=== PATIENT | male | born 1965 | race Caucasian/White ===

== ENCOUNTER 2022-10-05 18:17 | Emergency (ER) | payer MEDICAID, OTHER ==
[~2022-10-05] VITALS: Ht 170.2 cm; Wt 62.1 kg
[2022-10-05 19:10] VITALS: BP 127/62
--- NOTE | 2022-10-05 19:24 | NUR ---
INTERVIEWED PATIENT AT BEDSIDE, HAS COMPLAINTS OF BILATERAL FEET SWELLING x2 DAYS. PATIENT STATE THAT HE RECENTLY HAD PROCEDURE FOR DIABETIC ABSCESS. PMH: DM, ANXIETY,OK
[2022-10-05 20:13] LABS: BASOPHILS # (AUTO) 0.1 K/uL (0.00-0.22); BASOPHILS % (AUTO) 0.7 % (0.0-2.0); EOSINOPHILS # (AUTO) 0.3 K/uL (0-0.4); EOSINOPHILS % (AUTO) 2.4 % (0.0-4.0); HEMATOCRIT 31.1 % (36-52); HEMOGLOBIN 9.7 g/dL (12.0-18.0); LYMPHOCYTES # (AUTO) 2.1 K/uL (2.0-11.5); LYMPHOCYTES % (AUTO) 17.1 % (20.5-51.1); MEAN CORPUSCULAR HEMOGLOBIN 23 pg (27-31); MEAN CORPUSCULAR HGB CONC 31 g/dL (33-37); MEAN CORPUSCULAR VOLUME 74.9 fL (80-94); MONOCYTES # (AUTO) 0.8 K/uL (0.8-1.0); MONOCYTES % (AUTO) 6.1 % (1.7-9.3); NEUTROPHILS # (AUTO) 9.1 K/uL (1.8-7.7); NEUTROPHILS % (AUTO) 73.7 % (42.2-75.2); PLATELET COUNT (AUTO) 344 K/uL (140-450); RED BLOOD CELL COUNT(AUTO) 4.15 MIL/uL (4.20-6.10); RED CELL DISTRIBUTION WIDTH 16.2 % (11.6-13.7); WHITE BLOOD COUNT (AUTO) 12.4 K/uL (4.8-10.8)
[2022-10-05 20:37] LABS: POTASSIUM 4.8 mmol/L (3.5-5.1)
[2022-10-05 20:38] LABS: CARBON DIOXIDE 24.8 mmol/L (21-32); CREATININE 3.1 mg/dL (0.6-1.3); TOTAL BILIRUBIN 0.5 mg/dL (0.0-1.0)
[2022-10-05 20:39] LABS: ALBUMIN 2.3 g/dL (3.4-5.0)
[2022-10-05] MEDS ORDERED: CEPH-588 PO (21:39)
[2022-10-05] MEDS ORDERED: ACET-10509 PO (21:39)
[2022-10-05 21:50] VITALS: BP 127/62
--- NOTE | 2022-10-05 21:50 | NUR ---
Patient does not wish to proceed with medical care recommended by DR. CLAYTON. Patient given information related to possible complications, up to and including , which could occur as a result of leaving hospital at this time. Patient verbalizes understanding of risks involved leaving against medical advice. Patient has signed AMA form. PRESCRIPTIONS PROVIDED: ACETAMINOPHEN, KEFLEX DX: ACUTE KIDNEY INJURY, ADULT, CELLULITIS, ADULT
== END 2022-10-05 21:50 | disposition left against medical advice (07) ==
LOC: MED 18:17
DX: S31.829A Unspecified open wound of left buttock, initial encounter (principal); S71.002A Unspecified open wound, left hip, initial encounter; L98.419 Non-pressure chronic ulcer of buttock with unspecified severity; I25.2 Old myocardial infarction; E11.9 Type 2 diabetes mellitus without complications; F41.9 Anxiety disorder, unspecified; Z98.890 Other specified postprocedural states; Z79.899 Other long term (current) drug therapy; Z79.2 Long term (current) use of antibiotics; X58.XXXA Exposure to other specified factors, initial encounter; Y92.89 Other specified places as the place of occurrence of the external cause; Y93.89 Activity, other specified; Y99.8 Other external cause status
CPT/HCPCS: 36415; 80053; 83880; 84484; 85025; 93005; 93970; 99284; Q0092

== ENCOUNTER 2022-11-11 00:45 | Inpatient (IN) | payer OTHER ==
[~2022-11-11] VITALS: Ht 170.2 cm; Wt 59.0 kg
[~2022-11-11 00:45] MED LIST: ACET-10509 PO; CEPH-588 PO
[2022-11-11 01:00] VITALS: BP 106/68; PULSE 111; RESP 17; TEMP 98.1; O2SAT 98
--- NOTE | 2022-11-11 01:03 | NUR ---
to lobby a/w bed via wheelchair
--- NOTE | 2022-11-11 03:00 | NUR ---
SEEN AND EXAMINED BY KELLY
--- NOTE | 2022-11-11 03:10 | NUR ---
PT TAKEN TO BED 6
--- NOTE | 2022-11-11 03:20 | NUR ---
Dr. Bird examining patient.
[2022-11-11] MEDS ORDERED: NACL 0.9% 1,000 ML IV ONE ×2 (03:25→07:40)
[2022-11-11] MEDS ORDERED: MORPHINE SULFATE 4 MG/ML SYR IVP ONE (03:25)
[2022-11-11] MEDS ORDERED: ONDANSETRON 4 MG/2 ML VIAL IVP ONE (03:25)
[2022-11-11 04:03] LABS: BASOPHILS # (AUTO) 0.2 K/uL (0.00-0.22); BASOPHILS % (AUTO) 1.2 % (0.0-2.0); EOSINOPHILS # (AUTO) 0.2 K/uL (0-0.4); EOSINOPHILS % (AUTO) 1.2 % (0.0-4.0); HEMATOCRIT 30.5 % (36-52); HEMOGLOBIN 9.7 g/dL (12.0-18.0); LYMPHOCYTES # (AUTO) 2.6 K/uL (2.0-11.5); LYMPHOCYTES % (AUTO) 18.7 % (20.5-51.1); MEAN CORPUSCULAR HEMOGLOBIN 23 pg (27-31); MEAN CORPUSCULAR HGB CONC 32 g/dL (33-37); MEAN CORPUSCULAR VOLUME 73.7 fL (80-94); MONOCYTES # (AUTO) 0.8 K/uL (0.8-1.0); MONOCYTES % (AUTO) 6.1 % (1.7-9.3); NEUTROPHILS % (AUTO) 72.8 % (42.2-75.2); PLATELET COUNT (AUTO) 517 K/uL (140-450); RED BLOOD CELL COUNT(AUTO) 4.14 MIL/uL (4.20-6.10); WHITE BLOOD COUNT (AUTO) 13.7 K/uL (4.8-10.8)
--- NOTE | 2022-11-11 04:04 | NUR ---
EKG performed at BS. Physician given copy of EKG for review.
[2022-11-11 04:20] LABS: PROTHROMBIN TIME 10.5 secs (10.8-13.4)
[2022-11-11 04:24] LABS: CHLORIDE 103 mmol/L (98-107); POTASSIUM 3.9 mmol/L (3.5-5.1); SODIUM SERUM 139 mmol/L (136-145)
--- NOTE | 2022-11-11 04:24 | NUR ---
X-Ray at bedside.
--- NOTE | 2022-11-11 04:27 | NUR ---
Patient resting in bed, A/Ox4, chest rise and fall symmetrical, no s/s of distress, on monitor,
[2022-11-11 04:32] LABS: ALBUMIN 2.9 g/dL (3.4-5.0); ANION GAP 16.4 (8-16); CARBON DIOXIDE 23.6 mmol/L (21-32); CREATININE 1.3 mg/dL (0.6-1.3); GFR ARICAN-AMERICAN 74 mL/min (>90); GLUCOSE 255 mg/dL (74-106); UREA NITROGEN, BLOOD 20 mg/dL (7-18)
[2022-11-11 04:50] LABS: ASPARTATE AMINOTRANSFERASE 13 U/L (15-37); TOTAL BILIRUBIN 0.2 mg/dL (0.0-1.0)
[2022-11-11 05:14] LABS: ACETONE, SERUM NEGATIVE (NEGATIVE)
[2022-11-11] MEDS ORDERED: VANCOMYCIN 1,000 MG in DEXTROSE 5% 250 ML IV ONE (05:30)
[2022-11-11] MEDS ORDERED: PIPERACILLIN/TAZOBACTAM 3.375 GM in DEXTROSE 5% 50 ML IV ONE (05:30)
[2022-11-11] MEDS ORDERED: PIPERACILLIN/TAZOBACTAM 3.375 GM VIAL IV ONE (05:53)
[2022-11-11] MEDS ORDERED: VANCOMYCIN 1,000 MG VIAL ONE ×2 (06:02→23:21)
--- NOTE | 2022-11-11 06:35 | NUR ---
Patient resting in bed, A/Ox4, chest rise and fall symmetrical, no s/s of distress, on monitor
[2022-11-11] MEDS ORDERED: METF-346 PO (06:37)
[2022-11-11] MEDS ORDERED: DIAZ10TA7 PO (06:37)
--- NOTE | 2022-11-11 07:21 | NUR ---
Change of shift report gven to AM Shift Nurse Antony DORANTES. AM Shift Nurse Antony DORANTES verbalized understanding of report, no further questions.
--- NOTE | 2022-11-11 07:22 | NUR ---
SHIFT CHANGE REPORT RECEIVED FROM JOSE PIRES. ALL QUESTIONS ANSWERED.
[2022-11-11 07:23] VITALS: O2SAT 99
--- NOTE | 2022-11-11 07:23 | NUR ---
57 YO M PT STATES HE IS HERE FOR EVAL ON LT BUTTOCK/THIGH ABSCESS, PT STATES PAIN RADIATES TO LT LEG AND FOOT W/NUMBNESS. DENIES URINARY OR BOWL INCONTINENCE, N,V,D, FEVER, CHILLS. SAFETY MAINTAINED. HX: HTN, DM2
[2022-11-11] MEDS ORDERED: HYDROcodone/APAP 5/325 MG 1 TAB TAB PO ONE (08:30)
[2022-11-11] MEDS ORDERED: LORazepam 1 MG TAB PO PRN (09:55)
[2022-11-11] MEDS ORDERED: ZOLPIDEM 5 MG TAB PO PRN (09:55)
[2022-11-11] MEDS ORDERED: VANCOMYCIN PER PHARMACY MC PRN (09:55)
[2022-11-11] MEDS ORDERED: ACETAMINOPHEN 325 MG TAB PO PRN (09:55)
[2022-11-11] MEDS ORDERED: ONDANSETRON 4 MG/2 ML VIAL IVP PRN (09:55)
[2022-11-11] MEDS ORDERED: INSULIN LISPRO SLIDING SCALE 100 UNITS/ML VIAL SUBQ PRN (10:15)
[2022-11-11] MEDS ORDERED: DEXTROSE 50% 50 ML SYR IVP PRN (10:15)
--- NOTE | 2022-11-11 10:20 | NUR ---
CALLED PHARMACY FOR ROCEPHIN, NOT AVAILABLE IN ED
--- NOTE | 2022-11-11 11:26 | NUR ---
PT SLEEPING, CHEST RISE AND FALL NOTED
[2022-11-11] MEDS: BLOOD GLUCOSE MONITORING 1 DEV DEV FS SCH ×3 (11:30→21:00)
--- NOTE | 2022-11-11 11:39 | NUR ---
CALLED PHARMACY TO FOLLOW UP ON ROCEPHIN DROP OFF ORDER. BRUCE STATED IT WILL BE DROPPED OFF IN 15MIN
--- NOTE | 2022-11-11 11:47 | NUR ---
BRUCE FROM PHARMACY DROPED OFF ROCEPHIN, GIVEN TO VISUAL DESIGNER LIU TO ADMINISTER.
[2022-11-11 12:28] LABS: APPEARANCE,URINE CLEAR (CLEAR); BILIRUBIN,URINE NEGATIVE (NEGATIVE); BLOOD, URINE NEGATIVE (NEGATIVE); COLOR,URINE YELLOW (YELLOW); LEUKOCYTE ESTERASE ,URINE NEGATIVE (NEGATIVE); NITRITE, URINE NEGATIVE (NEGATIVE); UGLUCOSE TRACE (NEGATIVE)
--- NOTE | 2022-11-11 12:49 | NUR ---
CALLED AUDREY TO GIVE REPORT, SHE STATED SHE WILL CALL ME BACK IN 5 MIN
--- NOTE | 2022-11-11 13:02 | NUR ---
PATIENT HAS BEEN SCREENED AND CATEGORIZED MODERATE NUTRITION RISK. PATIENT WILL BE SEEN WITHIN 3-5 DAYS OF ADMISSION. 11/14/22-11/16/[address]
--- NOTE | 2022-11-11 13:15 | NUR ---
Patient will be admitted to care of JOSH CARNES MD. Admited to MED/SURG. Will go to room 120B. Belongings list completed. Report to AUDREY PIRES.
[2022-11-11 14:00] VITALS: PULSE 76; RESP 18; O2SAT 98
--- NOTE | 2022-11-11 15:34 | NUR ---
WOUND CARE NOTE: PT. ADMITTED RIGHT MEDIAL THIGH OLD HEALED SCAR 8X3CM AND A CHRONIC SURGICAL WOUND TO LEFT HIP. PT. REFUSES SURGICAL CONSULT. POC DISCUSSED TO HAVE SOFT TISSUE ULTRASOUND FIRST THEN DISCUSSED MORE OPTION WITH DOCTOR. PT. INSISTED NO SURGERY. POC DISCUSSED WITH PRIMARY RN SHARAN AND INFORM DR. CARNES OF PT. DENY SURGERY. -LEFT HIP (DISFIGURED) SURGICAL WOUND 25X4CM, AREA COVER WITH HEALED SCAR TISSUE AND A OPEN WOUND, IRREGULAR SHAPE, OPEN WOUND AREA WITH FULL THICKNESS SKIN LOSS 3X8X0.5CM WOUND BED CLEAN 100% PINK TISSUE, MOIST, NO ODOR, WOUND EDGE SKIN WITH MULTIPLE EROSIONS WEEPING OUT PURULENT DRAINAGE, MILD ODOR, YESENIA-WOUND SKIN NO INDURATION, SOFT, PAIN 2/10,YESENIA-WOUND SKIN DRY WITH HYPERPIGMENTATION COLOR, NORMAL TEMP. WITH MULTIPLE HEALED SCAR TISSUE. RECOMMENDATIONS: -CLEANSE LEFT HIP WOUND WITH NS, PAT DRY, APPLY ALGINATE DRESSING TO WOUND BED AND , APPLY HYDRAGUARD TO YESENIA-WOUND SKIN, COVER WITH ABD PAD AND SECURED WITH TAPE DAILY AND PRN IF SOILING.
[2022-11-11] MEDS ORDERED: ALGINATE ROPE MC PRN (15:55)
[2022-11-11 16:00] VITALS: BP 117/62; PULSE 88; RESP 18; TEMP 97.9; O2SAT 100
[2022-11-11] MEDS: HYDROcodone/APAP 5/325 MG 1 TAB TAB PO PRN ×2 (18:46→22:40)
--- NOTE | 2022-11-11 19:00 | NUR ---
PT ARRIVED TO UNIT FROM ER VIA GURNEY (1300). NO SIGNS OF DISTRESS/PAIN REPORTED/NOTED. PT STABLE UPON ARRIVING. WOUND TO LEFT HIP AND GROIN AREA. WOUND CARE NURSE ASSESSED AND DRESSED WOUND. WOUND PICS WERE TAKEN/DOCUMENTED. US OF WOUND ORDERED AND TAKEN. ENDORSED TO NIGHTSHIFT NURSE FOR CONTINUITY OF CARE. NO FURTHER NEEDS ARE TO BE MET AT THIS TIME. PT DID NOT NEED INSULIN COVERAGE ON SHIFT - BGM 130'S.
[2022-11-11 20:00] VITALS: BP 118/71; PULSE 92; RESP 18; TEMP 98.2; O2SAT 94
[2022-11-11] MEDS: metFORMIN 500 MG TAB PO SCH (21:00)
--- NOTE | 2022-11-11 22:00 | NUR ---
DOMENICO (CHARGED NURSE) NOTICED THAT THERE'S NO ASSIGNED PM NURSE TO THE PT. HE DEDICED TO GIVE THE PT TO ME. CHECKED THE PT. HE IS AOX4, BEDREST, ABLE TO VERBALIZE NEEDS AND ABLE TO FOLLOW COMMANDS. PT IS ON ROOM AIR AND ON CCHO DIET. PT HAS IV ON RIGHT FOREARM GAUGE 20, SALINE LOCK AND LEFT WRIST GAUGE 22, SALINE LOCK. PT HAS LEFT HIP/BUTTOCK SURGICAL WOUND/CELLULITIS AND CLOSE WOUND ON LEFT LOWER EXTREMITY AND RIGHT MEDIAL THIGH. PT COMPLAIN OF PAIN ON LEFT HIP AND NO S/S OF RESPIRATORY DISTRESS NOTED. ALL SAFETY MEASURES IMPLEMENTED. BED IN LOW POSITION, BED WHEELS ON LOCK AND CALL LIGHT WITHIN REACH.
--- NOTE | 2022-11-11 22:40 | NUR ---
PT WAS GIVEN NORCO DUE TO LEFT HIP PAIN WITH PAIN SCALE OF 6/10. PT BLOOD GLUCOSE IS 103. NO INSULIN COVERAGE NEEDED. PT REFUSED METFORMIN. ALL SAFETY MEASURES IMPLEMENTED. BED IN LOW POSITION, BED WHEELS ON LOCK AND CALL LIGHT WITHIN REACH.
--- NOTE | 2022-11-11 23:40 | NUR ---
SCHEDULED AND PRESCRIBED MEDICATION WAS GIVEN TO PT PER MD ORDER. ALL SAFETY MEASURES IMPLEMENTED. BED IN LOW POSITION, BED WHEELS ON LOCK AND CALL LIGHT WITHIN REACH
[2022-11-12] MEDS ORDERED: VANCOMYCIN 750 MG in DEXTROSE 5% 250 ML IV SCH ×2
--- NOTE | 2022-11-12 02:00 | NUR ---
PT IS ON SLEEP. CHEST RISE AND FALL SYMMETRICALLY NOTED. RESPIRATION IS EVEN AND UNLABORED. ALL SAFETY MEASURES IMPLEMENTED. BED IN LOW POSITION, BED WHEELS ON LOCK AND CALL LIGHT WITHIN REACH.
[2022-11-12] MEDS: HYDROcodone/APAP 5/325 MG 1 TAB TAB PO PRN ×5 (04:57→23:13)
--- NOTE | 2022-11-12 04:57 | NUR ---
PRN PAIN MEDICATION WAS GIVEN TO PT DUE TO PAIN ON THE LEFT HIP/BUTTOCKS WITH PAIN SCALE OF 6/10. ALL SAFETY MEASURES IMPLEMENTED. BED IN LOW POSITION, BED WHEELS ON LOCK AND CALL LIGHT WITHIN REACH.
[2022-11-12 05:25] LABS: BASOPHILS # (AUTO) 0.1 K/uL (0.00-0.22); BASOPHILS % (AUTO) 0.9 % (0.0-2.0); EOSINOPHILS # (AUTO) 0.2 K/uL (0-0.4); EOSINOPHILS % (AUTO) 1.8 % (0.0-4.0); HEMATOCRIT 26.7 % (36-52); HEMOGLOBIN 8.4 g/dL (12.0-18.0); LYMPHOCYTES # (AUTO) 2.7 K/uL (2.0-11.5); LYMPHOCYTES % (AUTO) 22.6 % (20.5-51.1); MEAN CORPUSCULAR HEMOGLOBIN 23 pg (27-31); MEAN CORPUSCULAR HGB CONC 32 g/dL (33-37); MEAN CORPUSCULAR VOLUME 73.7 fL (80-94); MONOCYTES # (AUTO) 0.6 K/uL (0.8-1.0); MONOCYTES % (AUTO) 4.7 % (1.7-9.3); NEUTROPHILS # (AUTO) 8.3 K/uL (1.8-7.7); PLATELET COUNT (AUTO) 423 K/uL (140-450); RED BLOOD CELL COUNT(AUTO) 3.63 MIL/uL (4.20-6.10); WHITE BLOOD COUNT (AUTO) 11.8 K/uL (4.8-10.8)
[2022-11-12 05:42] LABS: ALBUMIN 2.5 g/dL (3.4-5.0); ANION GAP 13.7 (8-16); CARBON DIOXIDE 23.1 mmol/L (21-32); MAGNESIUM 1.8 mg/dL (1.8-2.4); PHOSPHORUS 3.2 mg/dL (2.5-4.9); POTASSIUM 3.8 mmol/L (3.5-5.1); TOTAL BILIRUBIN 0.3 mg/dL (0.0-1.0)
[2022-11-12] MEDS: BLOOD GLUCOSE MONITORING 1 DEV DEV FS SCH ×4 (06:53→21:10)
--- NOTE | 2022-11-12 06:53 | NUR ---
PT BLOOD GLUCOSE IS 127. NO INSULIN COVERAGE NEEDED.
--- NOTE | 2022-11-12 07:20 | NUR ---
RECEIVED REPORT FROM FIRE APPARATUS SPRINKLER INSPECTOR NURSE FOR CONTINUITY OF CARE. PT IS STABLE AT THIS TIME.
--- NOTE | 2022-11-12 07:28 | NUR ---
PT IS STABLE. ENDORSED PT TO MORNING SHIFT NURSE FOR CONTINUITY OF CARE.
[2022-11-12 08:00] VITALS: BP 103/55; PULSE 82; RESP 16; TEMP 97.2; O2SAT 97
[2022-11-12] MEDS: DOCUSATE SODIUM 100 MG GELCAP PO SCH (09:00)
[2022-11-12] MEDS: metFORMIN 500 MG TAB PO SCH ×2 (09:00→21:00)
[2022-11-12] MEDS: VANCOMYCIN 1,000 MG in DEXTROSE 5% 250 ML IV SCH ×2 (11:44→23:06)
[2022-11-12] MEDS: ALGINATE ROPE MC SCH (13:24)
[2022-11-12 16:00] VITALS: BP 114/63; PULSE 87; RESP 18; TEMP 98.8; O2SAT 98
--- NOTE | 2022-11-12 19:13 | NUR ---
RECEIVED REPORT FROM PRANAY BROWER FOR CONTINUITY OF CARE. PT SLEEPING, EASILY AROUSABLE BY VERBAL STIMULI. RESPIRATIONS EVEN AND UNLABORED ON RA. NOTED LEFT THIGH COVERED WITH DRESSING, DRY AND INTACT. IV SITES ON LEFT HAND 22G AND RFA 20G. POC DISCUSSED. REPORT GIVEN TO PRANAY ADAMS. CALL LIGHT WITHIN REACH. SAFETY PRECAUTIONS IN PLACE.
--- NOTE | 2022-11-12 19:46 | NUR ---
ENDORSED PT TO CLUB LOUNGE ATTENDANT NURSE FOR CONTINUITY OF CARE. PT STABLE AT THIS TIME.
[2022-11-12 20:00] VITALS: BP 121/72; PULSE 90; RESP 18; RESP 20; TEMP 97.9; O2SAT 94; O2SAT 97
--- NOTE | 2022-11-12 20:00 | NUR ---
Patient's Plan of Care was discussed and reviewed with JAYNA RCIHMOND.
--- NOTE | 2022-11-12 21:13 | NUR ---
NO INSULIN COVERAGE FOR BS 112. PT REFUSED TAKING METFORMIN, RISKS AND BENEFITS DISCUSSED PT STILL REFUSED.
[2022-11-13] MEDS: HYDROcodone/APAP 5/325 MG 1 TAB TAB PO PRN ×5 (05:07→20:47)
--- NOTE | 2022-11-13 05:08 | NUR ---
PT COMPLAINED OF LEFT THIGH PAIN 11/21. PRN PAIN MED ADMINISTERED. PT REFUSED TO BE CLEANED AT THIS TIME. RE-ORIENTED TO USE OF CALL LIGHT WHEN HE NEEDS ANYTHING. SAFETY PRECAUTIONS IN PLACE.
[2022-11-13] MEDS: BLOOD GLUCOSE MONITORING 1 DEV DEV FS SCH ×4 (06:36→20:45)
--- NOTE | 2022-11-13 06:37 | NUR ---
NO SLIDING SCALE INSULIN ADMINISTERED FOR BS 132.
--- NOTE | 2022-11-13 07:17 | NUR ---
GAVE BEDSIDE REPORT TO PRANAY BROWER FOR CONTINUITY OF CARE. PT IS STABLE.
--- NOTE | 2022-11-13 07:25 | NUR ---
RECEIVED REPORT FROM VEGETABLE FARMING SUPERVISOR NURSE FOR CONTINUITY OF CARE. PT IS STABLE AT THIS TIME.
[2022-11-13 08:00] VITALS: BP 115/70; PULSE 88; PULSE 97; RESP 18; TEMP 98.7; O2SAT 97
[2022-11-13] MEDS: DOCUSATE SODIUM 100 MG GELCAP PO SCH (09:00)
[2022-11-13] MEDS: metFORMIN 500 MG TAB PO SCH ×2 (09:00→20:45)
[2022-11-13 10:25] LABS: BASOPHILS # (AUTO) 0.1 K/uL (0.00-0.22); BASOPHILS % (AUTO) 0.5 % (0.0-2.0); EOSINOPHILS # (AUTO) 0.1 K/uL (0-0.4); EOSINOPHILS % (AUTO) 1.1 % (0.0-4.0); HEMATOCRIT 27.3 % (36-52); HEMOGLOBIN 8.9 g/dL (12.0-18.0); LYMPHOCYTES # (AUTO) 1.4 K/uL (2.0-11.5); LYMPHOCYTES % (AUTO) 11.1 % (20.5-51.1); MEAN CORPUSCULAR HEMOGLOBIN 23 pg (27-31); MEAN CORPUSCULAR HGB CONC 33 g/dL (33-37); MEAN CORPUSCULAR VOLUME 71.1 fL (80-94); MONOCYTES # (AUTO) 0.6 K/uL (0.8-1.0); NEUTROPHILS # (AUTO) 10.4 K/uL (1.8-7.7); NEUTROPHILS % (AUTO) 82.3 % (42.2-75.2); PLATELET COUNT (AUTO) 429 K/uL (140-450); RED BLOOD CELL COUNT(AUTO) 3.83 MIL/uL (4.20-6.10); RED CELL DISTRIBUTION WIDTH 17.9 % (11.6-13.7); WHITE BLOOD COUNT (AUTO) 12.7 K/uL (4.8-10.8)
[2022-11-13 10:44] LABS: ALBUMIN 2.5 g/dL (3.4-5.0); ANION GAP 14.2 (8-16); CARBON DIOXIDE 23.7 mmol/L (21-32); CREATININE 1.1 mg/dL (0.6-1.3); MAGNESIUM 1.6 mg/dL (1.8-2.4); PHOSPHORUS 3.7 mg/dL (2.5-4.9); POTASSIUM 3.9 mmol/L (3.5-5.1); TOTAL BILIRUBIN 0.4 mg/dL (0.0-1.0)
--- NOTE | 2022-11-13 11:02 | NUR ---
RECEIVED A CALL FROM LAB THAT PTS VANCO TROUGH IS 26.9. NOTIFIED AND CALLED PHARMACY AND THEY TOLD ME TO HOLD THE DOSE THAT IS DUE AT THIS TIME. Addendum: 11/13/22 at 1104 by Zeinab Castañeda RN WAITING FOR 'S RESPONSE.
[2022-11-13] MEDS ORDERED: MAG SULF 2000 MG/WATER PREMIX 25 ML IV SCH (11:45)
[2022-11-13] MEDS: ALGINATE ROPE MC SCH (13:09)
[2022-11-13] MEDS ORDERED: LINE600T4 PO (13:29)
[2022-11-13 16:00] VITALS: BP 118/74; PULSE 90; RESP 18; TEMP 98.9; O2SAT 98
--- NOTE | 2022-11-13 19:26 | NUR ---
ENDORSED PT TO CLOTH DESIZING RANGE TENDER NURSE FOR CONTINUITY OF CARE. PT STABLE AT THIS TIME.
--- NOTE | 2022-11-13 19:30 | NUR ---
RECEIVED PT FROM DAY RN FOR CONTINUITY OF CARE. PT AWAKE, ALERT AND ORIENTED X 4, ON ROOM AIR. BREATHING EVEN AND UNLABORED. NO S/SX OF DISTRESS AT THE MOMENT.WOUND DRESSING ON LEFT BUTTOCK DRY AND INTACT. POC DISCUSSED. ALL PRECAUTIONS IN PLACE. CALL LIGHT WITHIN REACH. WILL CONTINUE TO MONITOR.
[2022-11-13 20:00] VITALS: BP 115/69; PULSE 97; RESP 18; TEMP 98.5; O2SAT 98
--- NOTE | 2022-11-13 21:00 | NUR ---
NO INSULIN COVERAGE FOR BS 133. PT REFUSED TAKING METFORMIN, RISKS AND BENEFITS DISCUSSED. PT STILL REFUSED.
[2022-11-14] MEDS: HYDROcodone/APAP 5/325 MG 1 TAB TAB PO PRN ×4 (01:06→17:55)
[2022-11-14 04:00] VITALS: BP 115/63; PULSE 82; RESP 18; TEMP 98.4; O2SAT 96
--- NOTE | 2022-11-14 05:45 | NUR ---
PATIENT REFUSED BLOOD DRAW. EXPLAINED IMPORTANCE OF THE PROCEDURE. PT STILL REFUSED.
[2022-11-14] MEDS: BLOOD GLUCOSE MONITORING 1 DEV DEV FS SCH ×3 (06:14→16:30)
--- NOTE | 2022-11-14 06:30 | NUR ---
PT IS STABLE. NO ACUTE EVENTS THROUGHOUT THE NIGHT. ALL NEEDS MET. NO S/SX OF DISTRESS AT THE MOMENT. ALL PRECAUTIONS IN PLACE. CALL LIGHT WITHIN REACH. WILL ENDORSE TO MORNING SHIFT NURSE.
--- NOTE | 2022-11-14 07:22 | NUR ---
receive the patient from the marketing consultant rn in rm 120B aox4 with admitting diagnosis of chronic infected wound . still with antibiotics , pain medication . will continue to monitor
[2022-11-14] MEDS ORDERED: VANCOMYCIN 1,000 MG in DEXTROSE 5% 250 ML IV SCH (08:00)
[2022-11-14 08:04] VITALS: PULSE 95; RESP 20; O2SAT 99
[2022-11-14] MEDS: DOCUSATE SODIUM 100 MG GELCAP PO SCH (09:30)
[2022-11-14] MEDS: metFORMIN 500 MG TAB PO SCH (09:32)
[2022-11-14 09:38] LABS: BASOPHILS # (AUTO) 0.1 K/uL (0.00-0.22); BASOPHILS % (AUTO) 0.8 % (0.0-2.0); EOSINOPHILS # (AUTO) 0.1 K/uL (0-0.4); EOSINOPHILS % (AUTO) 1.2 % (0.0-4.0); HEMATOCRIT 30.2 % (36-52); HEMOGLOBIN 9.8 g/dL (12.0-18.0); LYMPHOCYTES # (AUTO) 1.5 K/uL (2.0-11.5); MEAN CORPUSCULAR HEMOGLOBIN 23 pg (27-31); MEAN CORPUSCULAR HGB CONC 33 g/dL (33-37); MEAN CORPUSCULAR VOLUME 71.6 fL (80-94); MONOCYTES # (AUTO) 0.6 K/uL (0.8-1.0); MONOCYTES % (AUTO) 4.6 % (1.7-9.3); NEUTROPHILS % (AUTO) 81.4 % (42.2-75.2); PLATELET COUNT (AUTO) 446 K/uL (140-450); RED BLOOD CELL COUNT(AUTO) 4.21 MIL/uL (4.20-6.10); RED CELL DISTRIBUTION WIDTH 17.6 % (11.6-13.7); WHITE BLOOD COUNT (AUTO) 12.3 K/uL (4.8-10.8)
[2022-11-14 10:02] LABS: ALBUMIN 2.6 g/dL (3.4-5.0); ANION GAP 14.8 (8-16); CREATININE 1.1 mg/dL (0.6-1.3); MAGNESIUM 1.7 mg/dL (1.8-2.4); PHOSPHORUS 3.8 mg/dL (2.5-4.9); POTASSIUM 3.8 mmol/L (3.5-5.1); TOTAL BILIRUBIN 0.4 mg/dL (0.0-1.0)
[2022-11-14] MEDS: ALGINATE ROPE MC SCH (13:00)
--- NOTE | 2022-11-14 19:01 | NUR ---
will discharge the patient home with home health for wound care in a stable condition with antibiotics and pain mediaction
--- NOTE | 2022-11-16 14:45 | NUR ---
RECEIVED ORDER FOR PATIENT TO GET HOME HEALTH FOR WOUND CARE. FAXED ALL PAPER WOR TO [facility], [facility], [facility]. SPOKE WITH KYARA AT [facility] WHO ACCEPTED AUTH #[id number] GIVEN BY ELLIS AT [facility] [place].
== END 2022-11-14 19:05 | disposition home health service (06) | DRG 720 ==
LOC: MED 00:45 → MMU 10:06 → MTU 12:10
PROVIDERS: ADMIT Hospitalist; ATTEND Hospitalist
DX: A41.9 Sepsis, unspecified organism (principal); E44.0 Moderate protein-calorie malnutrition; D63.8 Anemia in other chronic diseases classified elsewhere; L97.122 Non-pressure chronic ulcer of left thigh with fat layer exposed; S71.102A Unspecified open wound, left thigh, initial encounter; L03.116 Cellulitis of left lower limb; E11.9 Type 2 diabetes mellitus without complications; F11.20 Opioid dependence, uncomplicated; F32.A Depression, unspecified; X58.XXXA Exposure to other specified factors, initial encounter; F41.9 Anxiety disorder, unspecified; Z79.2 Long term (current) use of antibiotics; Z79.899 Other long term (current) drug therapy; Y93.89 Activity, other specified; Y92.89 Other specified places as the place of occurrence of the external cause; Y99.8 Other external cause status; Z68.20 Body mass index [BMI] 20.0-20.9, adult
CPT/HCPCS: 36415; 71045; 73701; 76881; 80053; 80202; 81003; 82009; 82550; 82803; 83605; 83735; 84100; 84484; 85025; 85610; 85730; 87040; 87070; 87075; 87081; 87086; 87205; 96361; 96365; 96375; 99285; A4649; J0696; J2270; J2405; J2543; J3370; J3475; J7060; Q0092; Q9967